=== PATIENT | female | born 1985 | race Caucasian/White ===

== ENCOUNTER 2018-11-02 01:22 | Emergency (ER) | payer SELFPAY | END 2018-11-02 02:21 | disposition left against medical advice (07) | LOC: E/R 01:22 | DX: S01.111A Laceration without foreign body of right eyelid and periocular area, initial encounter (principal); F10.920 Alcohol use, unspecified with intoxication, uncomplicated; W18.39XA Other fall on same level, initial encounter; Y92.9 Unspecified place or not applicable | CPT/HCPCS: 12014; 99283-25 ==